=== PATIENT | female | born 1955 | race Hispanic/Latino ===

== ENCOUNTER 2018-12-20 22:39 | Emergency (ER) | payer OTHER ==
[2018-12-20] MEDS ORDERED: SODIUM CHLORIDE 0.9% 1000ML 1,000 ML IV ONE (23:40)
[2018-12-20] MEDS ORDERED: ONDANSETRON HCL 4 MG/2 ML VIAL ONE (23:40)
[2018-12-20 23:47] LABS: APPEARANCE,URINE Clear (CLEAR); BILIRUBIN,URINE Negative (NEGATIVE); COLOR,URINE Yellow (YELLOW); GLUCOSE, URINE (UA) Negative (NEGATIVE); KETONES,URINE Trace mg/dL (NEGATIVE); LEUKOCYTE ESTERASE ,URINE Small (NEGATIVE); NITRATE,URINE Negative (NEGATIVE); OCCULT BLOOD,URINE Negative (NEGATIVE); PROTEIN,URINE 300 mg/dL (NEGATIVE)
[2018-12-20 23:51] LABS: BASOPHILS % (AUTO) 0.7 % (0.0-5.0); EOSINOPHILS % (AUTO) 0.7 % (0.0-8.0); LYMPHOCYTES % (AUTO) 22.8 % (21.0-51.0); MEAN CORPUSCULAR HEMOGLOBIN 29.1 pg (27.0-33.0); MEAN CORPUSCULAR HGB CONC 33.5 g/dL (32.0-36.0); MEAN CORPUSCULAR VOLUME 86.9 fL (79-99); MONOCYTES % (AUTO) 5.8 % (3.0-13.0); PLATELET COUNT (AUTO) 276 K/uL (130-400); RED BLOOD CELL COUNT(AUTO) 4.37 MIL/uL (4.00-5.50); RED CELL DISTRIBUTION WIDTH 14.1 % (11.0-15.5); WHITE BLOOD COUNT (AUTO) 8.5 K/uL (4.8-10.8)
[2018-12-20 23:56] LABS: CREATININE 0.6 mg/dL (0.5-1.5); POTASSIUM 4.4 mmol/L (3.5-5.1)
[2018-12-21] LABS: ALBUMIN 3.7 g/dL (3.5-5.0); BILIRUBIN,TOTAL 0.5 mg/dL (0.2-1.0); TOTAL PROTEIN, SERUM 7.8 g/dL (6.0-8.3)
[2018-12-21 00:10] LABS: BACTERIA,URINE None Seen /HPF (None Seen); RBC,URINE None Seen /HPF (0-1); SQUAMOUS EPITHELIAL CELL,UR Few /HPF (0-2); WBC,URINE 0-1 /HPF (0-1); YEAST,URINE BUDDING Rare /HPF (None Seen)
[2018-12-21] MEDS ORDERED: MECLIZINE HCL 25 MG TABLET ONE (00:57)
[2018-12-21] MEDS ORDERED: LISINOPRIL 5 MG TABLET ONE (00:58)
[2018-12-21] MEDS ORDERED: METHYLPREDNISOLONE SOD SUCC 40MG/ML 1ML ONE (00:58)
== END 2018-12-21 03:08 | disposition home or self-care (01) ==
LOC: EDH 22:39
DX: H81.399 Other peripheral vertigo, unspecified ear (principal); E86.0 Dehydration; R11.2 Nausea with vomiting, unspecified; I10 Essential (primary) hypertension; E11.9 Type 2 diabetes mellitus without complications; E03.9 Hypothyroidism, unspecified; E78.00 Pure hypercholesterolemia, unspecified; Z88.8 Allergy status to other drugs, medicaments and biological substances; Z90.710 Acquired absence of both cervix and uterus
CPT/HCPCS: 36415; 80053; 81001; 83690; 84484; 85025; 93005; 96361; 96374; 96375; 99285; J2405; J2920; J7030

== ENCOUNTER 2020-11-26 11:49 | Observation (INO) | payer OTHER, MEDICARE ==
[2020-11-22 10:43] LABS: BASOPHILS % (AUTO) 0.3 % (0.0-5.0); EOSINOPHILS % (AUTO) 1.7 % (0.0-8.0); LYMPHOCYTES % (AUTO) 33.3 % (21.0-51.0); MEAN CORPUSCULAR HEMOGLOBIN 29.1 pg (27.0-33.0); MEAN CORPUSCULAR HGB CONC 33.1 g/dL (32.0-36.0); MEAN CORPUSCULAR VOLUME 88.1 fL (79-99); MONOCYTES % (AUTO) 5.8 % (3.0-13.0); NEUTROPHILS % (AUTO) 58.6 % (40.0-77.0); PLATELET COUNT (AUTO) 298 K/uL (130-400); RED BLOOD CELL COUNT(AUTO) 4.77 MIL/uL (4.00-5.50); RED CELL DISTRIBUTION WIDTH 12.4 % (11.0-15.5); WHITE BLOOD COUNT (AUTO) 8.8 K/uL (4.8-10.8)
[2020-11-22 10:44] LABS: APPEARANCE,URINE Clear (CLEAR); BILIRUBIN,URINE Negative (NEGATIVE); COLOR,URINE Yellow (YELLOW); GLUCOSE, URINE (UA) Negative (NEGATIVE); KETONES,URINE Trace mg/dL (NEGATIVE); LEUKOCYTE ESTERASE ,URINE Trace (NEGATIVE); NITRATE,URINE Negative (NEGATIVE); OCCULT BLOOD,URINE Negative (NEGATIVE); PROTEIN,URINE Negative (NEGATIVE)
[2020-11-22 10:50] LABS: CREATININE 0.9 mg/dL (0.5-1.5); POTASSIUM 4.6 mmol/L (3.5-5.1)
[2020-11-22 11:01] LABS: BACTERIA,URINE Rare /HPF (None Seen); INR 1.05 (0.85-1.15); PROTHROMBIN TIME 11.4 SEC (9.6-11.6); RBC,URINE 0-1 /HPF (0-1); SQUAMOUS EPITHELIAL CELL,UR Few /HPF (0-2); WBC,URINE 0-1 /HPF (0-1)
[2020-11-23 11:05] VITALS: BP 168/79
[2020-11-26] VITALS (20 sets, daily range): BP systolic 120–161; BP diastolic 61–86
[~2020-11-26] VITALS: Ht 149.9 cm; Wt 79.8 kg
[~2020-11-26 11:49] MED LIST: AMLO-257 PO; LEVO50CA4 PO; LISI40TA9 PO; TRAM50TA4 PO
[2020-11-26] MEDS ORDERED: LACTATED RINGERS 1000ML 1,000 ML IV ONE (13:09)
[2020-11-26] MEDS ORDERED: CEFAZOLIN SODIUM 1 GM VIAL ONE ×5 (13:09→16:00)
[2020-11-26] MEDS ORDERED: CELECOXIB 200 MG CAP ONE (15:10)
[2020-11-26] MEDS ORDERED: ACETAMINOPHEN 500 MG TABLET ONE (15:10)
[2020-11-26] MEDS ORDERED: TRANEXAMIC ACID 1000MG/10ML ONE ×2 (16:00→18:50)
[2020-11-26] MEDS ORDERED: PROPOFOL 10 MG/ML 20ML VIAL IV ONE (16:14)
[2020-11-26] MEDS ORDERED: ROCURONIUM 10MG/1ML SYR 10 MG/ML ML ONE ×2 (16:14→17:10)
[2020-11-26] MEDS ORDERED: MIDAZOLAM HCL 1 MG/ML 2ML VIAL ONE (16:14)
[2020-11-26] MEDS ORDERED: LIDOCAINE HCL-MPF 1% 5ML AMP IJ ONE (16:14)
[2020-11-26] MEDS ORDERED: FENTANYL CITRATE PF 50 MCG/1 ML 2ML VIAL ONE ×2 (16:14→17:11)
[2020-11-26] MEDS ORDERED: ROPIVACAINE 0.5% 5MG/ML 30ML IJ ONE (16:21)
[2020-11-26] MEDS ORDERED: EPHEDRINE SULFATE 50 MG/ML AMPULE ONE (18:17)
[2020-11-26] MEDS ORDERED: TRAMADOL HCL 50 MG TABLET PO PRN ×2 (19:00→22:00)
[2020-11-26] MEDS ORDERED: DiphenhydrAMINE HCL 50 MG/ML VIAL IVP PRN (19:00)
[2020-11-26] MEDS ORDERED: KCL 20 MEQ ERTAB PO PRN (19:00)
[2020-11-26] MEDS ORDERED: FERROUS FUMARATE 324 MG TABLET PO PRN (19:00)
[2020-11-26] MEDS ORDERED: ONDANSETRON 4MG INJ IVP PRN (19:00)
[2020-11-26] MEDS ORDERED: POTASSIUM CHLORIDE 20MEQ/100ML 100 ML IV PRN (19:00)
[2020-11-26] MEDS ORDERED: OXYCODONE HCL 5 MG TAB PO PRN (19:00)
[2020-11-26] MEDS ORDERED: POTASSIUM CHLORIDE 10% ELIXIR 20 MEQ/15 ML UDCUP PO PRN (19:00)
[2020-11-26] MEDS ORDERED: KETOROLAC 15MG/ML VIAL (15MG/ML) IV PRN (19:00)
[2020-11-26] MEDS ORDERED: 0.9%NACL 1000ML 1,000 ML IV SCH (19:00)
[2020-11-26] MEDS ORDERED: CALCIUM CARB 500MG PO PRN (19:00)
[2020-11-26] MEDS ORDERED: LIDOCAINE HCL-MPF 1% 2ML VIAL IV PRN (19:00)
[2020-11-26] MEDS ORDERED: PHARMACY COMMUNICATION MISC SCH (19:45)
[2020-11-26] MEDS ORDERED: MEPERIDINE-PF 25 MG/ML SYG ONE (19:50)
[2020-11-26] MEDS: AMLODIPINE 5 MG TAB PO SCH (22:00)
[2020-11-26] MEDS: CELECOXIB 200 MG CAP PO SCH (22:03)
[2020-11-26] MEDS: FAMOTIDINE 20MG TAB PO SCH (22:03)
[2020-11-26] MEDS: PREGABALIN 25 MG CAP PO SCH (22:04)
[2020-11-26] MEDS: ACETAMINOPHEN 500 MG TABLET PO SCH (22:06)
[2020-11-26] MEDS: CEFAZOLIN SODIUM 1 GM VIAL IVP SCH (23:28)
[2020-11-27] MEDS ORDERED: PHARMACY COMMUNICATION MISC SCH (01:15)
[2020-11-27] MEDS: ACETAMINOPHEN 500 MG TABLET PO SCH ×3 (03:34→19:00)
[2020-11-27 04:26] VITALS: BP 118/61
[2020-11-27 04:34] LABS: HEMATOCRIT 31.3 % (36-48); MEAN CORPUSCULAR HEMOGLOBIN 29.9 pg (27.0-33.0); MEAN CORPUSCULAR HGB CONC 34.2 g/dL (32.0-36.0); MEAN CORPUSCULAR VOLUME 87.4 fL (79-99); RED BLOOD CELL COUNT(AUTO) 3.58 MIL/uL (4.00-5.50); RED CELL DISTRIBUTION WIDTH 12.3 % (11.0-15.5); WHITE BLOOD COUNT (AUTO) 13.2 K/uL (4.8-10.8)
[2020-11-27] MEDS ORDERED: LEVOTHYROXINE 50 MCG TABLET ONE (04:54)
[2020-11-27 04:58] LABS: CREATININE 0.6 mg/dL (0.5-1.5); POTASSIUM 3.7 mmol/L (3.5-5.1)
[2020-11-27] MEDS: LEVOTHYROXINE 50 MCG TABLET PO SCH (05:56)
[2020-11-27] MEDS: CEFAZOLIN SODIUM 1 GM VIAL IVP SCH (05:56)
[2020-11-27] MEDS: OXYCODONE HCL 5 MG TAB PO PRN (07:45)
[2020-11-27 08:23] VITALS: BP 133/57
[2020-11-27] MEDS: APIXABAN 2.5 MG TABLET PO SCH ×2 (10:05→20:34)
[2020-11-27] MEDS: PREGABALIN 25 MG CAP PO SCH ×2 (10:05→20:35)
[2020-11-27] MEDS: POLYETHYLENE GLYCOL 3350 17 GM POWD.PACK PO SCH (10:05)
[2020-11-27] MEDS: FAMOTIDINE 20MG TAB PO SCH ×2 (10:05→20:35)
[2020-11-27] MEDS: CELECOXIB 200 MG CAP PO SCH ×2 (10:05→20:35)
[2020-11-27] MEDS: LISINOPRIL 40 MG TABLET PO SCH (10:06)
[2020-11-27] MEDS ORDERED: KETOROLAC 30MG VIAL (30MG/ML) ONE (10:10)
[2020-11-27 12:07] VITALS: BP 119/65
[2020-11-27 16:11] VITALS: BP 114/57
[2020-11-27 20:07] VITALS: BP 146/69
[2020-11-27] MEDS: AMLODIPINE 5 MG TAB PO SCH (20:35)
[2020-11-27] MEDS: KETOROLAC 30MG VIAL (30MG/ML) IV PRN (20:38)
[2020-11-27 23:36] VITALS: BP 122/60
[2020-11-28] MEDS: ACETAMINOPHEN 500 MG TABLET PO SCH ×3 (03:10→19:00)
[2020-11-28 03:39] VITALS: BP 138/65
[2020-11-28] MEDS: LEVOTHYROXINE 50 MCG TABLET PO SCH (06:30)
[2020-11-28 08:00] VITALS: BP 116/57
[2020-11-28] MEDS: POLYETHYLENE GLYCOL 3350 17 GM POWD.PACK PO SCH (08:51)
[2020-11-28] MEDS: OXYCODONE HCL 5 MG TAB PO PRN (08:58)
[2020-11-28] MEDS: CELECOXIB 200 MG CAP PO SCH (08:58)
[2020-11-28] MEDS: FAMOTIDINE 20MG TAB PO SCH (08:58)
[2020-11-28] MEDS: PREGABALIN 25 MG CAP PO SCH (08:58)
[2020-11-28] MEDS: APIXABAN 2.5 MG TABLET PO SCH (09:02)
[2020-11-28] MEDS: LISINOPRIL 40 MG TABLET PO SCH (11:43)
[2020-11-28 12:00] VITALS: BP 140/62
[2020-11-28] MEDS: KETOROLAC 30MG VIAL (30MG/ML) IV PRN (12:50)
[2020-11-28 16:00] VITALS: BP 129/64
[2020-11-28] MEDS ORDERED: APIX2.5T PO (17:10)
[2020-11-28] MEDS ORDERED: HYDR-4060 PO (17:10)
[2020-11-29] MEDS ORDERED: BISACODYL 10 MG SUPP.RECT RC PRN (19:00)
== END 2020-11-28 19:35 | disposition home or self-care (01) ==
LOC: DAH 11:49 → DAHIP 19:00 → INTOOBSV 19:00 → OBSVTOIN 19:00 → 4AH 21:41
PROVIDERS: ADMIT Orthopaedic Surgery; ATTEND Orthopaedic Surgery
DX: M16.12 Unilateral primary osteoarthritis, left hip (principal); Z20.822 Contact with and (suspected) exposure to COVID-19; I10 Essential (primary) hypertension; E78.00 Pure hypercholesterolemia, unspecified; D64.9 Anemia, unspecified; R11.2 Nausea with vomiting, unspecified; Z86.73 Personal history of transient ischemic attack (TIA), and cerebral infarction without residual deficits; Z90.710 Acquired absence of both cervix and uterus; Z79.899 Other long term (current) drug therapy
CPT/HCPCS: 27130; 36415 ×2; 73503; 80048 ×2; 81001; 82948 ×10; 85025; 85027; 85610; 87635; 87641 ×2; 96361 ×2; 96374; 96375 ×2; 96376 ×2; 97039 ×5; 97116 ×4; 97161; 97530 ×3; A4215; A4221; A4222; A4223; A4600; A4649 ×5; A4663; A4930 ×2; A5120; A9272; C1776; C9803; G0378 ×46; G8978; G8979; G8980; G8981; G8982; G8983; J0690 ×7; J1885 ×3; J2175; J2250; J2405; J2704; J2795; J3010 ×2; J3490 ×3; J7030; J7120

== ENCOUNTER → 2024-05-16 | Outpatient (CLI) | payer OTHER, MEDICARE ==
[~2024-05-16] MED LIST changes: +APIX2.5T PO; +HYDR-4060 PO; -TRAM50TA4 PO
== END | disposition home or self-care (01) ==
LOC: SHCH 10:36
PROVIDERS: ATTEND Internal Medicine
DX: I35.0 Nonrheumatic aortic (valve) stenosis (principal)
CPT/HCPCS: 93306